=== PATIENT | female | born 2000 ===

== ENCOUNTER → 2018-10-13 16:55 | Observation (INO) ==
[2018-10-13 16:28] LABS: Amphetamine Screen,Urine Negative ng/mL (Cutoff=1000); Barbiturate Screen,Urine Negative ng/mL (Cutoff=200); Benzodiazepines Screen,Urine Negative ng/mL (Cutoff=200); Cannabinoid Screen,Urine Negative ng/mL (Cutoff = 50); Cocaine Screen,Urine Negative ng/mL (Cutoff= 300); Opiate Screen,Urine Negative ng/mL (Cutoff=300); Phencyclidine Screen,Urine Negative ng/mL (Cutoff=25)
[2018-10-13 16:33] LABS: Bilirubin,Urine Negative (Negative); Blood,Urine Negative (Negative); Clarity,Urine Clear (Clear); Color,Urine Yellow (Yellow); Glucose,Urine (UA) Normal (Normal); Ketones,Urine 15 mg/dL (Negative); Nitrite,Urine Negative (Negative); PH,Urine 6.5 pH Units (5.0-8.0); Protein,Urine Negative (Neg-Trace); Specific Gravity,Urine 1.022 (1.010-1.025); Urobilinogen,Urine Normal (Normal)
[2018-10-13 16:34] LABS: Leukocyte Esterase,Urine Negative (Negative)
--- NOTE | 2018-10-13 16:40 | OB/GYN Progress Note ---
Date of Encounter: 10/13/18 Time of Encounter: 16:32 - Assessment and Plan (1) 31 weeks gestation of Current Visit: Yes Status: Acute (2) Pain of round ligament affecting , antepartum Current Visit: Yes Status: Acute Pt reporting sharp pains on bilateral lower abdomen that shoot into her vagina. No contractions on toco. SVE closed and thick. Discharge home with precautions. Subjective - Subjective Principal diagnosis: lower abdominal pain Interval history: 18 year-old presenting at 31 weeks with c/o intermittent sharp lower abdominal pains that shoot into her vagina. No leaking, bleeding, discharge, or urinary symptoms. She does report increased suprapubic pressure. No other complaints. Good FM. Antepartum ROS: movement normal, no vaginal bleeding, no contractions Objective - Vital Signs Vital Signs: Intake and Output 10/13/18 10/13/18 10/13/18 07:59 15:59 23:59 Other: Weight 88.8 kg Patient Weight 10/13/18 23:59 Weight 88.8 kg - Exam FHR: category 1 FHR comments: 135 BPM, reactive NST Auscultation: bilateral: normal Abdomen: Present: soft, gravid Uterus: Absent: tenderness Cervical dilation: closed/thick
== END | disposition home or self-care (01) ==
LOC: 1NENULAB
PROVIDERS: ADMIT Registered Nurse; ATTEND Registered Nurse

== ENCOUNTER 2018-11-27 18:11 | Observation (INO) ==
[2018-11-27 18:56] LABS: Bilirubin,Urine Negative (Negative); Blood,Urine Negative (Negative); Clarity,Urine Clear (Clear); Color,Urine Yellow (Yellow); Glucose,Urine (UA) Normal (Normal); Ketones,Urine Negative (Negative); Leukocyte Esterase,Urine Moderate (Negative); Nitrite,Urine Negative (Negative); PH,Urine 7.5 pH Units (5.0-8.0); Protein,Urine Negative (Neg-Trace); Specific Gravity,Urine 1.012 (1.010-1.025); Urobilinogen,Urine Normal (Normal)
[2018-11-27 18:59] LABS: Bacteria,Urine None Seen per hpf (None-Few); Hyaline Casts,Urine None Seen per lpf (None-Few); RBC,Urine 0-3 per hpf (0-3); Squamous Epithelial Cell,Urine Many per lpf (None-Few); WBC,Urine 0-3 per hpf (0-3)
[2018-11-27 19:05] LABS: Amphetamine Screen,Urine Negative ng/mL (Cutoff=1000); Barbiturate Screen,Urine Negative ng/mL (Cutoff=200); Benzodiazepines Screen,Urine Negative ng/mL (Cutoff=200); Cannabinoid Screen,Urine Negative ng/mL (Cutoff = 50); Cocaine Screen,Urine Negative ng/mL (Cutoff= 300); Opiate Screen,Urine Negative ng/mL (Cutoff=300); Phencyclidine Screen,Urine Negative ng/mL (Cutoff=25)
[2018-11-27] MEDS ORDERED: Acetaminophen 325 MG TABLET PO ONE (19:14)
== END 2018-11-27 20:05 | disposition home or self-care (01) ==
LOC: 1NENULAB
PROVIDERS: ADMIT Obstetrics & Gynecology; ATTEND Obstetrics & Gynecology

== ENCOUNTER 2018-12-16 08:00 | Inpatient (IN) ==
[2018-12-16] MEDS ORDERED: Naloxone 0.4 MG/ML INJ IVP PRN ×2 (08:21→12:39)
[2018-12-16] MEDS ORDERED: Metoclopramide 10 MG/2 ML VIAL IVP PRN (08:21)
[2018-12-16] MEDS ORDERED: Famotidine 20 MG/2 ML VIAL IVP PRN (08:21)
[2018-12-16] MEDS ORDERED: miSOPROStol 25 MCG TABLET VG PRN (08:47)
[2018-12-16] MEDS ORDERED: FLU Vac QV 19-20 (6Month+)/PF 0.5 ML SYRINGE IM ONE (08:56)
[2018-12-16 09:09] LABS: Basophils # 0.1 K/mcL (0.0-0.2); Basophils % 0.5 %; Eosinophils # 0.3 K/mcL (0.0-0.6); Eosinophils % 2.5 %; Hematocrit 32.6 % (35.3-44.9); Hemoglobin 11.7 g/dL (11.5-15.4); Immature Granulocytes % 1.3 % (0-4); Lymphocytes # 1.8 K/mcL (0.6-4.6); Lymphocytes % 16.3 %; Mean Corpuscular HGB Conc 35.9 g/dL (31.6-35.5); Mean Corpuscular Hemoglobin 32.1 pg (28.0-33.3); Mean Corpuscular Volume 89.6 fL (83.0-100.0); Mean Platelet Volume 10.8 fL (9.4-12.4); Monocytes # 0.9 K/mcL (0.0-1.3); Monocytes % 7.8 %; Platelet Count 212 K/mcL (140-400); Red Blood Count 3.64 M/mcL (3.82-4.97); Red Cell Distribution Width 13.1 % (11.5-14.5); Segmented Neutrophils % 71.6 %; White Blood Count 11.1 K/mcL (4.3-11.1)
[2018-12-16 09:18] LABS: Amphetamine Screen,Urine Negative ng/mL (Cutoff=1000); Barbiturate Screen,Urine Negative ng/mL (Cutoff=200); Benzodiazepines Screen,Urine Negative ng/mL (Cutoff=200); Cannabinoid Screen,Urine Negative ng/mL (Cutoff = 50); Cocaine Screen,Urine Negative ng/mL (Cutoff= 300); Opiate Screen,Urine Negative ng/mL (Cutoff=300); Phencyclidine Screen,Urine Negative ng/mL (Cutoff=25)
[2018-12-16] MEDS ORDERED: Nicotine 14 MG PATCH.TD24 TD SCH (11:15)
[2018-12-16] MEDS ORDERED: Ringers Solution, Lactated 1,000 ML ONE (12:23)
[2018-12-16] MEDS: Ringers Solution, Lactated 1,000 ML IVC SCH ×2 (12:28→22:40)
[2018-12-16] MEDS ORDERED: Ropivacaine/PF 0.2% 20 ML VIAL EP ONE (12:39)
[2018-12-16] MEDS ORDERED: EPHEDrine 50 MG/ML VIAL IVP PRN (12:39)
[2018-12-16] MEDS ORDERED: Ondansetron 4 MG/2 ML VIAL IVP PRN (12:39)
[2018-12-16] MEDS ORDERED: *HR* FentaNYL (PF) 100 MCG/2 ML VIAL EP ONE (12:39)
[2018-12-16] MEDS ORDERED: Ropivacaine/PF 0.2% 20 ML VIAL ONE (13:04)
[2018-12-16] MEDS ORDERED: *HR* FentaNYL (PF) 100 MCG/2 ML VIAL ONE (13:04)
[2018-12-16] MEDS: Epidural Premix (fent/bupiv) 110 ML EP SCH ×3 (13:31→20:35)
[2018-12-16] MEDS ORDERED: Oxytocin 20 units/ LR 1000 mL 20 UNIT/1,000 ML BAG IVC SCH (16:15)
[2018-12-16] MEDS ORDERED: EPHEDrine 50 MG/ML VIAL ONE (16:45)
[2018-12-16] MEDS ORDERED: Acetaminophen 325 MG TABLET PO ONE (16:56)
[2018-12-17] MEDS ORDERED: Acetaminophen 325 MG TABLET PO ONE (01:27)
[2018-12-17] MEDS ORDERED: *HR* HYDROcodone/Acet 5/325 mg TABLET PO PRN (05:36)
[2018-12-17] MEDS ORDERED: Lanolin 7 G OINT...G. TP PRN (05:36)
[2018-12-17] MEDS ORDERED: Benzocaine/Menthol 56 GM AEROSOL SPRAY TP PRN (05:36)
[2018-12-17] MEDS ORDERED: Oxytocin 20 units/ LR 1000 mL 20 UNIT/1,000 ML BAG IVC SCH (05:36)
[2018-12-17] MEDS: Ibuprofen 600 MG TABLET PO PRN ×3 (06:22→20:57)
[2018-12-17] MEDS: Prenatal Vit/FA 1 EACH TABLET PO SCH (08:52)
[2018-12-17] MEDS ORDERED: NON-FORMULARY MEDICATION 1 EACH EACH (Prenatal Caplet 1 TAB) PO SCH (09:00)
[2018-12-17] MEDS: Acetaminophen 325 MG TABLET PO PRN (17:44)
[2018-12-18] MEDS: Acetaminophen 325 MG TABLET PO PRN (00:03)
[2018-12-18] MEDS: Ibuprofen 600 MG TABLET PO PRN (05:39)
[2018-12-18 06:19] LABS: Basophils % 0.4 %; Eosinophils # 0.3 K/mcL (0.0-0.6); Eosinophils % 2.4 %; Hematocrit 30.3 % (35.3-44.9); Immature Granulocytes % 0.5 % (0-4); Lymphocytes # 2.4 K/mcL (0.6-4.6); Lymphocytes % 21.3 %; Mean Corpuscular HGB Conc 33.3 g/dL (31.6-35.5); Mean Platelet Volume 11.1 fL (9.4-12.4); Monocytes # 0.8 K/mcL (0.0-1.3); Monocytes % 7.2 %; Neutrophils # 7.8 K/mcL (1.6-8.9); Platelet Count 185 K/mcL (140-400); Red Blood Count 3.16 M/mcL (3.82-4.97); Red Cell Distribution Width 13.2 % (11.5-14.5); Segmented Neutrophils % 68.2 %; White Blood Count 11.4 K/mcL (4.3-11.1)
[2018-12-18 06:23] LABS: Hemoglobin 10.1 g/dL (11.5-15.4); Mean Corpuscular Volume 95.9 fL (83.0-100.0)
[2018-12-18 08:19] VITALS: BP 104/65
[2018-12-18] MEDS: Prenatal Vit/FA 1 EACH TABLET PO SCH (09:24)
[2018-12-18] MEDS ORDERED: BuPROPion XL (24 HR) 150 MG TABLET PO SCH (09:40)
[2018-12-18] MEDS ORDERED: FLU Vac QV 19-20 (6Month+)/PF 0.5 ML SYRINGE IM ONE (11:24)
== END 2018-12-18 13:00 | disposition home or self-care (01) | DRG 560 ==
LOC: 1NENULAB 08:17 → 1NENUOBS 12-17 05:30
PROVIDERS: ADMIT Obstetrics & Gynecology; ATTEND Obstetrics & Gynecology